=== PATIENT | male | born 1960 | race Caucasian/White ===

== ENCOUNTER 2023-06-25 07:12 | Emergency (ER) | payer MEDICARE ==
[~2023-06-25] VITALS: Wt 89.8 kg
[2023-06-25] MEDS ORDERED: EXCEDRIN EXTRA1 EACH PO (07:41)
[2023-06-25] MEDS ORDERED: IBU-200200 MG PO (07:41)
[2023-06-25] MEDS ORDERED: CYCLOBENZAPRINE10 MG PO (08:27)
[2023-06-25] MEDS ORDERED: Motrin,Rufen800 MG PO (08:27)
== END 2023-06-25 08:30 | disposition home or self-care (01) ==
LOC: ED 07:12
DX: S49.91XA Unspecified injury of right shoulder and upper arm, initial encounter (principal); J44.9 Chronic obstructive pulmonary disease, unspecified; W19.XXXA Unspecified fall, initial encounter; Y93.89 Activity, other specified; Y92.89 Other specified places as the place of occurrence of the external cause; Y99.8 Other external cause status

== ENCOUNTER 2024-08-07 12:19 | Emergency (ER) | payer MEDICARE ==
[~2024-08-07] VITALS: Ht 182.8 cm; Wt 90.7 kg
[~2024-08-07 12:19] MED LIST: CYCLOBENZAPRINE10 MG PO; EXCEDRIN EXTRA1 EACH PO; IBU-200200 MG PO; Motrin,Rufen800 MG PO
[2024-08-07 13:07] LABS: BASO % 0.3 % (0.0-1.0); EOS # 0.1 10*3/uL (0.0-0.4); EOS % 0.9 % (1.0-4.0); HEMATOCRIT 42.4 % (42.0-52.0); MEAN CELL VOLUME 95.1 fl (80.0-94.0); MEAN CORPUSCULAR HGB 32.1 pg (27.0-31.0); MEAN CORPUSCULAR HGB CONC 33.7 g/dl (33.0-37.0); MEAN PLATELET VOLUME 8.5 fl (9.6-12.3); MONO # 0.7 10*3/uL (0.1-1.0); MONO % 7.2 % (3.0-9.0); NEUT # 6.9 10*3/uL (2.3-7.9); NEUT % 69.6 % (47.0-73.0); PLATELET COUNT AUTOMATED 280 10*3/uL (130-400); RED BLOOD COUNT 4.46 10*6/uL (4.50-5.90); RED CELL DISTRI WIDTH 12.9 % (0-14.5); WHITE BLOOD COUNT 9.9 10*3/uL (4.8-10.8)
[2024-08-07 13:27] LABS: BUN 13 mg/dl (9-23); CHLORIDE 103 mmol/L (98-107); POTASSIUM 3.5 mmol/L (3.4-5.1)
[2024-08-07] MEDS ORDERED: CEPHALEXIN500 M1 PO (14:10)
[2024-08-07] MEDS ORDERED: VIBRAMYCIN100 MG PO (14:10)
== END 2024-08-07 14:14 | disposition home or self-care (01) ==
LOC: ED 12:19
PROVIDERS: Physician Assistant Medical
DX: S60.411A Abrasion of left index finger, initial encounter (principal); L03.114 Cellulitis of left upper limb; I10 Essential (primary) hypertension; Z88.8 Allergy status to other drugs, medicaments and biological substances